=== PATIENT | female | born 1950 | race Caucasian/White ===

== ENCOUNTER 2016-06-17 05:51 | Emergency (ER) | payer OTHER ==
[~2016-06-17] VITALS: Ht 157.5 cm; Wt 59.0 kg
[~2016-06-17 05:51] MED LIST: ALPR0.254 PO; ASPI-515 PO; ASPI-621 PO; LISI-170 PO; PARO20TA4 PO; SIMV10TA3 PO; TRAZ50TA18 PO
[2016-06-17] MEDS ORDERED: SODIUM CHLORIDE 0.9% 1,000ML IVBOLUS ONE (06:00)
[2016-06-17] MEDS ORDERED: SODIUM CHLORIDE FLUSH 10ML SYR IVF ONE (06:00)
[2016-06-17] MEDS ORDERED: LOSA25TA5 PO (06:39)
[2016-06-17 06:50] LABS: ASPARTATE AMINO TRANSFERASE 20 U/L (15-37); BLOOD UREA NITROGEN 20 mg/dL (7-18)
[2016-06-17] MEDS ORDERED: POTASSIUM CHLORIDE 20 MEQ TAB.ER.PRT ONE (08:05)
[2016-06-17] MEDS ORDERED: POTASSIUM CHLORIDE 20 MEQ TAB.ER.PRT PO ONE (08:30)
[2016-06-17 09:01] VITALS: BP 118/45
== END 2016-06-17 09:03 | disposition home or self-care (01) ==
LOC: ED 06:56
DX: I95.89 Other hypotension (principal); E87.6 Hypokalemia
CPT/HCPCS: 36415; 76700; 80053; 83605; 83690; 85025; 85610; 86850; 86900; 93005; 96360; 96361; 99285; J7030

== ENCOUNTER 2018-11-23 06:52 | Observation (INO) | payer MEDICARE ==
[~2018-11-23] VITALS: Ht 157.5 cm; Wt 58.2 kg
[~2018-11-23 06:52] MED LIST changes: -ASPI-621 PO; +ASPI81TA45 PO; +LOSA25TA25 PO; -TRAZ50TA18 PO; +TRAZ50TA66 PO
--- NOTE | 2018-11-23 07:01 | NUR ---
BIB [facility], PT WITH C/O DIZZINESS, LIGHTHEADINESS. PT FEELING ANXIOUS. PT DENIES CP, DOES HAVE SOB PT TO NIBP, CONT PULSE OX. ERPROVIDER IN TO EVAL PT
[2018-11-23] MEDS ORDERED: LORazepam 0.5MG TABLET ONE (07:09)
[2018-11-23] MEDS ORDERED: ASPIRIN 81 MG TABLET CHEW ONE (07:14)
[2018-11-23] MEDS ORDERED: SODIUM CHLORIDE 0.9% 1,000ML IVBOLUS ONE (07:30)
[2018-11-23] MEDS ORDERED: ASPIRIN 81 MG TABLET CHEW PO ONE (07:30)
[2018-11-23] MEDS ORDERED: LORazepam 0.5MG TABLET PO ONE (07:30)
[2018-11-23 07:36] LABS: BASOPHILS # (AUTO) 0.06 x10^3/uL (0-0.1); BASOPHILS % (AUTO) 1 % (0-1); EOSINOPHILS # (AUTO) 0.03 x10^3/uL (0-0.4); EOSINOPHILS % (AUTO) 0 % (1-7); LYMPHOCYTES # (AUTO) 1.69 x10^3/uL (1-3.4); LYMPHOCYTES % (AUTO) 19 % (22-44); MD NO; MEAN CORPUSCULAR HEMOGLOBIN 31.1 pg (27.0-34.8); MEAN CORPUSCULAR HGB CONC 33.8 g/dL (32.4-35.8); MEAN CORPUSCULAR VOLUME 91.9 fL (80-100); MEAN PLATELET VOLUME 7.1 fL (7.4-10.4); MONOCYTES # (AUTO) 0.62 x10^3/uL (0.2-0.8); MONOCYTES % (AUTO) 7 % (2-9); NEUTROPHILS # (AUTO) 6.56 x10^3/uL (1.8-6.8); NEUTROPHILS % (AUTO) 73 % (42-75); PLATELET COUNT 187 x10^3/uL (130-400); RED BLOOD COUNT 4.21 x10^6/uL (3.82-5.3); RED CELL DISTRIBUTION WIDTH 12.8 % (9.6-15.2)
[2018-11-23 07:49] LABS: ALBUMIN 3.5 g/dL (3.4-5.0); ANION GAP 6 mmol/L (5-15); CALCIUM 9.1 mg/dL (8.5-10.1); CHLORIDE 106 mmol/L (98-107); CREATININE 1.56 mg/dL (0.55-1.02)
[2018-11-23 07:53] LABS: TROPONIN I < 0.015 ng/mL (0.000-0.045)
[2018-11-23 07:59] LABS: MICROSCOPIC NOT IND
--- NOTE | 2018-11-23 08:19 | NUR ---
PT RESTING ON GURNEY AT THIS TIME, UA COLLECTED AND SENT TO LAB. ERPROVIDER PERFORMED RECTAL TO ASSESS FOR GI BLEED. VSS
[2018-11-23] MEDS ORDERED: POTASSIUM CHLORIDE 20 MEQ TAB.ER.PRT ONE (08:53)
[2018-11-23] MEDS ORDERED: POTASSIUM CHLORIDE 20 MEQ PACKET PO ONE (09:00)
[2018-11-23] MEDS ORDERED: POTASSIUM CHLORIDE 40 MEQ in SODIUM CHLORIDE 0.9% 500 ML IV ONE (09:00)
--- NOTE | 2018-11-23 09:25 | NUR ---
ATTEMPTED TO CALL REPORT TO FLOOR RN, ON HOLD, SHE IS TO CALL ME BACK
[2018-11-23] MEDS ORDERED: TRAZODONE 50MG TABLET PO PRN (09:30)
[2018-11-23] MEDS ORDERED: ONDANSETRON 2MG/ML, 2ML IVPush PRN (09:30)
[2018-11-23] MEDS ORDERED: ONDANSETRON ODT 4 MG PO PRN (09:30)
[2018-11-23] MEDS ORDERED: hydrALAzine 20 MG/ML, 1ML IVPush PRN (09:30)
[2018-11-23] MEDS ORDERED: GUAIFENESIN/DM 200-20MG, 10ML UDC PO PRN (09:30)
[2018-11-23] MEDS ORDERED: CYCLOBENZAPRINE 10 MG TABLET PO PRN (09:30)
[2018-11-23] MEDS ORDERED: ACETAMINOPHEN 325 MG TABLET PO PRN (09:30)
[2018-11-23] MEDS ORDERED: ASA/APAP/ CAFFEINE TABLET PO PRN (09:30)
[2018-11-23] MEDS ORDERED: POLYETHYLENE GLYCOL 17 GM PACKET PO PRN (09:30)
--- NOTE | 2018-11-23 09:43 | NUR ---
REPORT GIVEN TO KEYUR LOVE RN
[2018-11-23 10:13] VITALS: BP 118/73
[2018-11-23] MEDS: LACTATED RINGERS 1,000 ML IV SCH ×2 (11:20→20:02)
[2018-11-23 13:20] VITALS: BP 97/59
[2018-11-23 18:36] VITALS: BP 114/69
[2018-11-23] MEDS ORDERED: SIMVASTATIN 10 MG TABLET PO SCH (21:00)
[2018-11-24 00:19] VITALS: BP 132/77
[2018-11-24 02:40] VITALS: BP 131/75
[2018-11-24 06:02] LABS: BASOPHILS # (AUTO) 0.02 x10^3/uL (0-0.1); BASOPHILS % (AUTO) 0 % (0-1); EOSINOPHILS # (AUTO) 0.12 x10^3/uL (0-0.4); EOSINOPHILS % (AUTO) 2 % (1-7); LYMPHOCYTES # (AUTO) 1.55 x10^3/uL (1-3.4); LYMPHOCYTES % (AUTO) 23 % (22-44); MD NO; MEAN CORPUSCULAR HEMOGLOBIN 31.6 pg (27.0-34.8); MEAN CORPUSCULAR VOLUME 92.8 fL (80-100); MEAN PLATELET VOLUME 7.5 fL (7.4-10.4); MONOCYTES # (AUTO) 0.53 x10^3/uL (0.2-0.8); MONOCYTES % (AUTO) 8 % (2-9); NEUTROPHILS # (AUTO) 4.68 x10^3/uL (1.8-6.8); NEUTROPHILS % (AUTO) 68 % (42-75); PLATELET COUNT 148 x10^3/uL (130-400); RED BLOOD COUNT 3.68 x10^6/uL (3.82-5.3); RED CELL DISTRIBUTION WIDTH 12.7 % (9.6-15.2)
[2018-11-24 06:04] LABS: ALANINE AMINOTRANSFERASE 18 U/L (12-78); ALBUMIN 2.9 g/dL (3.4-5.0); ANION GAP 3 mmol/L (5-15); CALCIUM 8.8 mg/dL (8.5-10.1); CHLORIDE 115 mmol/L (98-107); CREATININE 1.01 mg/dL (0.55-1.02)
[2018-11-24 06:06] LABS: ALKALINE PHOSPHATASE 67 U/L (45-117); BILIRUBIN,TOTAL 0.6 mg/dL (0.2-1.0); TOTAL PROTEIN 5.2 g/dL (6.4-8.2)
[2018-11-24 08:24] VITALS: BP 110/69
[2018-11-24] MEDS ORDERED: LOSARTAN 25MG TABLET PO SCH (09:00)
[2018-11-24] MEDS ORDERED: ASPIRIN 81 MG TABLET EC PO SCH (09:00)
== END 2018-11-24 12:00 | disposition home or self-care (01) ==
LOC: ED 07:02 → EDIP 08:46 → INTOOBSV 08:46 → 4EST 09:53 → DCLOUNGE 11-24 11:50
PROVIDERS: ADMIT Internal Medicine; ATTEND Internal Medicine
DX: R42 Dizziness and giddiness (principal); R55 Syncope and collapse; E87.6 Hypokalemia; E78.6 Lipoprotein deficiency; N17.0 Acute kidney failure with tubular necrosis; E86.0 Dehydration; G90.9 Disorder of the autonomic nervous system, unspecified; I95.1 Orthostatic hypotension; N18.2 Chronic kidney disease, stage 2 (mild); I12.9 Hypertensive chronic kidney disease with stage 1 through stage 4 chronic kidney disease, or unspecified chronic kidney disease; F41.9 Anxiety disorder, unspecified; R73.9 Hyperglycemia, unspecified; Z79.82 Long term (current) use of aspirin; Z79.899 Other long term (current) drug therapy; Z86.73 Personal history of transient ischemic attack (TIA), and cerebral infarction without residual deficits; Z88.5 Allergy status to narcotic agent
CPT/HCPCS: 36415; 71045; 80048; 80053; 81003; 82040; 82533; 83735; 83880; 84484; 85025; 86850; 86900; 93005; 96361; 96365; 96366; 97161; 97165; 99285; G0378; J3480; J7030; J7040; J7120; 96374

== ENCOUNTER 2020-02-11 17:13 | Emergency (ER) | payer MEDICARE ==
[~2020-02-11] VITALS: Ht 157.5 cm; Wt 60.8 kg
[~2020-02-11 17:13] MED LIST changes: +SIMV10TA18 PO; -SIMV10TA3 PO
--- NOTE | 2020-02-11 18:56 | NUR ---
PT CALLED TO ROOM FROM LOBBY
--- NOTE | 2020-02-11 19:01 | NUR ---
TO ED ROOM 9 PER W/C.
--- NOTE | 2020-02-11 19:10 | NUR ---
FELL OUT OF BED ON WEDNESDAY, HIT LT SIDE ON BEDSIDE TABLE. PRESENTS W/ LIDOCAINE PATCHES ON LT FLANK AND MID-BACK. ECCHYMOSIS TO LT FLANK. TOOK ACETEMINOPHEN ONE TAB DOSE UNKNOWN AT 1530. TOOK IBUPROFEN 200MG AT 1530. PT LIVES W/ HER SISTER. OLGA FIELDS AT BS.
[2020-02-11] MEDS ORDERED: LOSA1TAB22 PO (19:20)
[2020-02-11] MEDS ORDERED: ATOR20TA86 PO (19:20)
[2020-02-11] MEDS ORDERED: OXYcodone/APAP 5/325MG TABLET PO ONE (19:30)
[2020-02-11] MEDS ORDERED: OXYcodone/APAP 5/325MG TABLET ONE (19:35)
--- NOTE | 2020-02-11 19:35 | NUR ---
PT AMBULATORY TO [facility] W/ STEADY GAIT
--- NOTE | 2020-02-11 19:40 | NUR ---
PERCOCET GIVEN. PT TO RADIOLOGY PER WC
--- NOTE | 2020-02-11 19:49 | NUR ---
PT ENDORSED TO SAMMY KHOURY RN.
[2020-02-11 19:56] VITALS: BP 155/56
--- NOTE | 2020-02-11 20:25 | NUR ---
PT REPORT FROM COLBY KHOURY. PT AWAITING DISPOSITION.
== END 2020-02-11 21:13 | disposition home or self-care (01) ==
LOC: ED 18:50
DX: S39.012A Strain of muscle, fascia and tendon of lower back, initial encounter (principal); S70.02XA Contusion of left hip, initial encounter; Z86.73 Personal history of transient ischemic attack (TIA), and cerebral infarction without residual deficits; W06.XXXA Fall from bed, initial encounter; Y93.89 Activity, other specified; Y92.009 Unspecified place in unspecified non-institutional (private) residence as the place of occurrence of the external cause; Y99.8 Other external cause status
CPT/HCPCS: 72110; 99284